=== PATIENT | female | born 1950 | race Two or more races ===

== ENCOUNTER → 2023-04-08 | Emergency (ER) | payer OTHER ==
[~2023-04-08] VITALS: Ht 152.4 cm; Wt 77.1 kg
[~2023-04-08] MED LIST: SYNTHROID100 MCG
== END | disposition left against medical advice (07) ==
LOC: ER 12:07
DX: M79.671 Pain in right foot (principal); E03.9 Hypothyroidism, unspecified

== ENCOUNTER 2024-03-23 18:31 | Emergency (ER) | payer OTHER ==
[~2024-03-23] VITALS: Ht 162.6 cm; Wt 63.5 kg
== END 2024-03-23 20:08 | disposition home or self-care (01) ==
LOC: ER 18:33
DX: T81.89XA Other complications of procedures, not elsewhere classified, initial encounter (principal); E03.8 Other specified hypothyroidism